=== PATIENT | male | born 1990 | race Caucasian/White ===

== ENCOUNTER → 2017-04-10 10:08 | Outpatient (CLI) | payer MEDICARE, MEDICAID, SELFPAY ==
[2017-04-10 12:52] LABS: Valproic Acid (Depakene) Level 88 ug/mL (50-100)
== END ==
PROVIDERS: Family Provider Family Medicine; PCP Family Medicine; Visit Provider Psychiatry & Neurology Child & Adolescent Psychiatry
DX: F31.9 Bipolar disorder, unspecified (principal); F41.1 Generalized anxiety disorder; F84.0 Autistic disorder
CPT/HCPCS: 36415; 80164

== ENCOUNTER 2020-02-27 09:00 | Outpatient (RCR) | payer MEDICARE, MEDICAID, SELFPAY | END 2020-02-27 23:59 | LOC: IMMUN 09:00 | PROVIDERS: PCP Family Medicine; Visit Provider Family Medicine | DX: Z23 Encounter for immunization (principal) | CPT/HCPCS: 0011A; 0012A; 91301 ==

== ENCOUNTER 2020-05-13 12:35 | Emergency (ER) | payer MEDICARE, MEDICAID, SELFPAY ==
[2020-05-13 12:38] VITALS: BP 152/101; PULSE 86; RESP 23; TEMP 36.7; O2SAT 98; BMI 23.3
[2020-05-13 14:28] VITALS: BP 122/74; PULSE 78; RESP 14; O2SAT 98
--- NOTE | 2020-05-13 14:38 | EKG12_ITS ---
Test Reason : CO Blood Pressure : / mmHG Vent. Rate : 086 BPM Atrial Rate : 086 BPM P-R Int : 136 ms QRS Dur : 078 ms QT Int : 340 ms P-R-T Axes : 070 050 035 degrees QTc Int : 406 ms Normal sinus rhythm Normal ECG Confirmed by DARIANA LAINEZ, ANTOINE ([id number]), scientific editor HELEN MCDANIEL ([id number]) on 05/16/2020 9:40:07 AM Referred By: PRAVEEN Confirmed By:ANTOINE WESTBROOK MD
--- NOTE | 2020-05-13 14:54 | RAD_ITS ---
STUDY: X-RAY CHEST REASON FOR EXAM: Male, 30 years old. Chest pain TECHNIQUE: Frontal view COMPARISON: None. FINDINGS: There is asymmetric increased lucency of the left lung when compared to the right. The possibility of an anterior mild pneumothorax cannot be excluded. Normal size heart. Normal mediastinum and carleen. Normal visualized pulmonary arteries. Normal visualized aortic arch and descending thoracic aorta. Normal visualized thoracic spine. Normal visualized ribs, clavicles, and shoulders. There is no demonstrated abnormality of the visualized soft tissue structures of the upper abdomen. RAD/Chest 1 View (Portable) IMPRESSION: There is asymmetric increased lucency of the left lung when compared to the right. The possibility of an anterior mild pneumothorax cannot be excluded. Electronically Signed: Finesse Martínez DO at 16:06 EDT Tel [phone], Service support ,
[2020-05-13 14:58] LABS: Absolute Lymphocyte Count 2.08 X10^3/uL (0.83-4.51); Absolute Neutrophil Count 4.3 X10^3/uL (2.0-7.7); Basophil# 0.04 X10^3/uL; Basophil% 0.5 % (0-1); Eosinophil# 0.18 X10^3/uL; Eosinophils% 2.4 % (0-5); Hematocrit 44.7 % (40-54); Hemoglobin 15.5 g/dL (13.0-16.5); Lymphocyte # 2.08 X10^3/ul (4.0); Lymphocyte % 28.3 % (19-41); Mean Corp Hgb Conc 34.7 g/dL (32-36); Mean Corpuscular Hgb 31.4 pg (27.0-32.0); Mean Corpuscular Volume 90.5 fL (80-94); Mean Platelet Vol. 9.8 fl (6.2-12.0); Monocyte# 0.76 X10^3/uL; Monocyte% 10.3 % (0-10); NRBC Flagged by Analyzer 0 % (0-5); Neutrophil # 4.27 X10^3/uL (2.7-7.7); Neutrophil % 58.1 % (47-70); Platelet Count 315 K/mm3 (150-450); RBC Distribution Width CV 11.8 % (11.6-14.6); Red Blood Count 4.94 M/mm3 (4.6-6.2); White Blood Count 7.4 K/mm3 (4.4-11.0)
[2020-05-13] MEDS: Mag Hydrox/Al Hydrox/Simeth 30 ML UDC PO (14:59)
[2020-05-13 15:02] VITALS: BP 136/79; PULSE 93; RESP 20; O2SAT 100; O2SAT 98
[2020-05-13 15:11] LABS: Anion Gap 4 (5-15); BUN 12 mg/dL (7-18); BUN/Creat Ratio 15.7 RATIO (10-20); Calcium,Total 9.5 mg/dL (8.5-10.1); Chloride 102 mmol/L (98-107); Creatinine, Serum 0.77 mg/dL (0.70-1.30); EST Glomerular Filtration Rate 128 mL/min (>60); Est Glom Filt Rate - Afr Amer 154 mL/min (>60); Estimated Creatinine Clearance 155.37 ml/min; Glucose 97 mg/dL (74-106); Potassium 3.7 mmol/L (3.5-5.1); Sodium Level 138 mmol/L (136-145)
--- NOTE | 2020-05-13 16:01 | ED.VISSUMM ---
- ER Visit Summary Date of Service: 05/13/20 Chief Complaint: Chest pain History of Present Illness: The patient is a [address] Vázquez. He reports that he has chest pain that began approximately a 5 hours ago. It is a continuous burning pain that waxes and wanes. Zeta 10 at worst and 6 out of 10 currently. Is worsened by bending over. Is relieved by nothing. He denies any associated nausea, vomiting, diaphoresis, shortness of breath. Patient does report he has a history of reflux. Physical Examination: Vitals: Stable. Afebrile. General: Well-nourished and well-developed. Head: Normocephalic atraumatic. Neck: Supple, no lymphadenopathy. No JVD. Nontender. Cardiovascular: Regular rate and rhythm. No murmurs. Respiratory: No respiratory distress. Clear to auscultation bilaterally. Abdominal: Soft, nontender, nondistended, normal bowel sounds. No guarding, rebound, or peritoneal signs. Back: Nontender. Extremities: Nontender, no edema. Skin: Normal color, no rash. Neurologic: Alert and oriented ?3. Cranial nerves II through XII are intact. Normal strength and sensation. Psych: Normal affect. Test Results: EKG is sinus at [address] changes. Troponins negative despite 5 hours of constant pain. Chem-7 is normal. CBC is normal. Chest x-ray in my opinion is rotated and shows no acute disease. However, the radiologist feels that the left lung is less dense than the right and cannot rule out an anterior pneumothorax. Because of this a CT of the chest was obtained which shows no pneumothorax. Emergency Department Course and Treatment: Patient was treated with a GI cocktail and feels improvement. Treatment Plan: Patient be discharged on Pepcid. Instructed to follow-up his primary care physician in 3 to 5 days if not improving. Return to the emergency department for any worsening symptoms. Disposition: To home in improved and stable condition. Impression: 1. Atypical chest pain. This note was generated with [employer] dictation software. It may contain incorrect words, spelling, and punctuation that were not noted in review of the chart prior to signing ED Disposition - Plan for ED Patient: Disposition: Home or Assisted Living Instructions: ED Chest Pain, Uncertain Cause Prescriptions: Famotidine [Pepcid] 20 mg PO BID #28 tab Prescription Printed Referrals: Ney Vázquez MD [Primary Care Provider] - 3-5 Days if not improving
--- NOTE | 2020-05-13 16:19 | CT_ITS ---
STUDY: CT CHEST WITHOUT CONTRAST REASON FOR EXAM: Male, 30 years old. Pneumothorax on Left? RADIATION DOSAGE (If Supplied By Facility): CTDIvol = ( 8.68 ) mGy, DLP = ( 290.63 ) mGycm TECHNIQUE: Transaxial imaging was performed without the administration of intravenous contrast material. Individualized dose optimization techniques were used for this CT. COMPARISON: None. FINDINGS: No pneumothorax. The lungs are normal. There is no demonstrated pleural abnormality. Normal heart and pericardium. Normal mediastinum. Normal hilar regions. Normal unenhanced pulmonary arteries. Normal aorta arch and descending thoracic aorta. Normal osseous structures. There is no demonstrated abnormality of the visualized upper abdomen. CT/Chest without Contrast IMPRESSION: Normal unenhanced CT Chest examination. No pneumothorax. Electronically Signed: Finesse Martínez DO at 17:49 EDT Tel [phone], Service support ,
[2020-05-13 16:31] VITALS: BP 136/78; PULSE 73; RESP 14; O2SAT 100
[2020-05-13 18:04] VITALS: BP 89/69; PULSE 75; RESP 14; O2SAT 99
== END 2020-05-13 18:12 | disposition home or self-care (01) ==
PROVIDERS: Emergency Provider Emergency Medicine; PCP Family Medicine
DX: R07.89 Other chest pain (principal); K21.9 Gastro-esophageal reflux disease without esophagitis; F31.9 Bipolar disorder, unspecified
CPT/HCPCS: 71045; 71250; 80048; 84484; 85025; 93005; 99285; A4216

== ENCOUNTER → 2021-10-16 | Outpatient (CLI) | payer MEDICARE, MEDICAID, SELFPAY ==
[2021-10-16 17:48] LABS: Absolute Lymphocyte Count 2.07 X10^3/uL (0.83-4.51); Absolute Neutrophil Count 4.2 X10^3/uL (2.0-7.7); Basophil# 0.03 X10^3/uL; Basophil% 0.4 % (0-1); Eosinophil# 0.11 X10^3/uL; Eosinophils% 1.5 % (0-5); Hematocrit 43.3 % (40-54); Hemoglobin 15.3 g/dL (13.0-16.5); Lymphocyte # 2.07 X10^3/ul (0.83-4.51); Lymphocyte % 28.7 % (19-41); Mean Corp Hgb Conc 35.3 g/dL (32-36); Mean Corpuscular Volume 90.6 fL (80-94); Mean Platelet Vol. 10.2 fl (6.2-12.0); Monocyte# 0.81 X10^3/uL; Monocyte% 11.2 % (0-10); NRBC Flagged by Analyzer 0 % (0-5); Neutrophil # 4.16 X10^3/uL (2.7-7.7); Neutrophil % 57.8 % (47-70); Platelet Count 320 K/mm3 (150-450); RBC Distribution Width CV 11.8 % (11.6-14.6); RBC Distribution Width SD 39.4 fl (35.1-43.9); Red Blood Count 4.78 M/mm3 (4.6-6.2); White Blood Count 7.2 K/mm3 (4.4-11.0)
[2021-10-16 18:04] LABS: Vitamin B12 535 pg/mL (211-911); Vitamin D,25 Hydroxy 30.1 ng/mL
[2021-10-16 19:02] LABS: ALB/GLOB Ratio 1.2 RATIO (0.9-2.4); AST(SGOT) 20 U/L (15-37); Alanine Aminotransfer ALT/SGPT 24 U/L (16-61); Albumin, Serum 4.2 g/dL (3.2-5.0); Alkaline Phosphatase 60 U/L (45-117); Anion Gap 9 (5-15); BUN 8 mg/dL (7-18); BUN/Creat Ratio 10.7 RATIO (10-20); Calcium,Total 9.4 mg/dL (8.5-10.1); Chloride 103 mmol/L (98-107); Creatinine, Serum 0.75 mg/dL (0.70-1.30); EST Glomerular Filtration Rate 129 mL/min (>60); Est Glom Filt Rate - Afr Amer 156 mL/min (>60); Globulin 3.6 g/dL (2.2-4.2); Glucose 89 mg/dL (74-106); Protein, Total 7.8 g/dL (6.4-8.2); Sodium Level 139 mmol/L (136-145); T4 Free Direct 0.88 ng/dL (0.76-1.46); Thyroid Stim Hormone (TSH) 1.28 uIU/mL (0.358-3.74)
[2021-10-22 08:28] LABS: Thyroglobulin Antibody < 1.0 IU/mL (0.0-0.9); Thyroid Peroxidase AB < 8 IU/mL (0-34)
== END | disposition home or self-care (01) ==
LOC: MFPLAB 15:09
PROVIDERS: PCP Family Medicine; Visit Provider Family Medicine
DX: E03.9 Hypothyroidism, unspecified (principal); R53.83 Other fatigue
CPT/HCPCS: 80053; 82306; 82607; 84439; 84443; 85025; 86376; 86800

== ENCOUNTER → 2022-06-03 | Outpatient (CLI) | payer MEDICARE, MEDICAID, SELFPAY ==
--- NOTE | 2022-06-03 15:20 | RAD_ITS ---
STUDY: X-RAY - LUMBAR SPINE REASON FOR EXAM: Male, 32 years old. Lower back pain. TECHNIQUE: 3 view(s) of the lumbar spine were obtained. COMPARISON: None FINDINGS: Normal lumbar lordosis. Mild levoscoliosis with convexity at L2. There is a normal alignment of the vertebrae. Normal vertebral bodies and endplates. Normal disc space heights. There is no evidence of acute fracture or loss of vertebral axial height. The soft tissue structures are unremarkable. RAD/Lumbar Spine 2 or 3 Views IMPRESSION: Mild levoscoliosis. Electronically Signed: Fortino Leiva DO at 16:54 EDT ,
[2022-06-03 17:22] LABS: T4 Free Direct 0.81 ng/dL (0.76-1.46)
== END | disposition home or self-care (01) ==
LOC: MTLAB 15:15
PROVIDERS: PCP Family Medicine; Referring Provider Family Medicine; Visit Provider Family Medicine
DX: M54.50 Low back pain, unspecified (principal); E03.9 Hypothyroidism, unspecified
CPT/HCPCS: 36415; 72100; 84439; 84443

== ENCOUNTER 2023-04-07 14:30 | Outpatient (RCR) | payer MEDICARE, MEDICAID, SELFPAY ==
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
--- NOTE | 2023-03-17 13:24 | HP.PTREVAL ---
Re-Evaluation Intro: Dr. Ney Rutherford MD, It has been my pleasure to treat CESAR MEZA over the last 9 visits for LOW BACK PAIN. Please see the progress note below for an update on the physical therapy plan of care! Subjective Subjective: Patient reports PT is helping Ex's at home helps Better with walking standing Objective Objective/Function: POSTURE: mild forward posture , head forward posture OBSERVATION: awkward movement , GAIT: reciprocal pattern decrease rotation ,awkward UE motion LUMBAR ROM: lumbar flexion WFL ,extension min loss pain ,side glides min loss FLEXABILITY: hamstrings min tight MMT: quads/hams 4/5 ,hip flexion 4/5 ,ankle 4/5 Plan Plan Plan: PT INTERVENTIONS POSTURAL EX'S ,DLS ,FUNCTIONAL STRENGTHENING AND MODALTIES NEEDED Balance/Gait/Functional tests Balance/Special Test Scores Lower Extremity Functional Score: 43 Goals Goals Goal 1:: Patient to be I with HEP Goal Time Frame: 4-6 Weeks Goal Progress: Progressing Goal 2:: Patient to improve posture for ADLS 80% Goal Time Frame: 4-6 Weeks Goal Progress: Progressing Goal 3:: Patient to improve lumbar ROM for function of recovery for job demands Goal Progress: Progressing Goal 4:: Patient to improve back oswestry score by 5 points to improve QOL Goal Time Frame: 4-6 Weeks Goal Progress: Progressing Goal 5:: Patient to demonstrate 50% improvement with decrease pain and improved function Goal Time Frame: ( Nw goal) Anticipated Interventions Anticipated Interventions Patient/Client Instruction: Educate patient on: Condition and Plan of Care For the Purpose of:: To decrease pain, To increase ROM, To improve muscle performance and motor function, To improve ability to perform ADL's, To increase tolerance to activity/condition/position, To improve ability of physical actions for home/community/work/leisure, To increase flexibility/ROM, To foster healthy habits and To improve tolerance to ADL's Therapeutic Exercise to Include: Strength training, Body mechanics, Postural training, Flexibilty training and Dynamic Lumbar Stabilization For the Purpose of:: To decrease pain, To increase ROM, To improve muscle performance and motor function, To improve ability to perform ADL's, To increase tolerance to activity/condition/position, To improve ability of physical actions for home/community/work/leisure, To improve health of tissue, To decrease soft tissue restriction, To increase flexibility/ROM, To reduce risk of recurrence and To improve tolerance to ADL's TENS: Yes IF ES: Yes Cryotherapy (ice pack, ice massage): Yes Thermo therapy (hot pack): Yes Ultrasound (thermal/non thermal): Yes For the Purpose of:: To decrease pain, To increase ROM, To improve nutrient delivery to tissue, To increase oxygenation perfusion, To improve health of tissue and To decrease soft tissue restriction Re-Evaluation Ending Re-evaluation ending: Please do not hesitate to contact me at [phone] by phone or if you have questions or concerns regarding this new plan of care! Sincerely, Adrián Richards, PT, Cert MDT, OCS
--- NOTE | 2023-06-02 08:58 | HP.PTDCNRP_ITS ---
Patient Information Patient Information: CESAR MEZA was seen in my office for initial evaluation on 01/20/23. The following Plan of Care was established for this patient: POC Established Initial Frequency: 2x /Week Initial Duration: 4 Weeks Anticipated Interventions Patient/Client Instruction: Educate patient on: Condition and Plan of Care For the Purpose of:: To decrease pain, To increase ROM, To improve muscle performance and motor function, To improve ability to perform ADL's, To increase tolerance to activity/condition/position, To improve ability of physical actions for home/community/work/leisure, To increase flexibility/ROM, To foster healthy habits and To improve tolerance to ADL's Therapeutic Exercise to Include: Strength training, Body mechanics, Postural training, Flexibilty training and Dynamic Lumbar Stabilization For the Purpose of:: To decrease pain, To increase ROM, To improve muscle perf ormance and motor function, To improve ability to perform ADL's, To increase tolerance to activity/condition/position, To improve ability of physical actions for home/community/work/leisure, To improve health of tissue, To decrease soft tissue restriction, To increase flexibility/ROM, To reduce risk of recurrence and To improve tolerance to ADL's TENS: Yes IF ES: Yes Cryotherapy (ice pack, ice massage): Yes Thermo therapy (hot pack): Yes Ultrasound (thermal/non thermal): Yes For the Purpose of:: To decrease pain, To increase ROM, To improve nutrient delivery to tissue, To increase oxygenation perfusion, To improve health of tissue and To decrease soft tissue restriction Last Seen Last Seen: This patient was last seen in our office . Pertinent comments regarding their Physical therapy will appear below: Patient was seen for PT for evaluation for low back and tx with DLS and postural ex's At this point I will be discontinuing this patient from physical therapy. I would be happy to see this patient again in the future if found appropriate by the physician. Thank you! Adrián Richards, PT, Cert MDT, OCS Balance/Gait/Functional tests Balance/Special Test Scores Lower Extremity Functional Score: 43
== END 2023-04-07 19:00 | disposition home or self-care (01) ==
LOC: PT 14:30
PROVIDERS: PCP Family Medicine; Referring Provider Family Medicine; Visit Provider Family Medicine
DX: M54.50 Low back pain, unspecified (principal)
CPT/HCPCS: 97110; 97162; 97530